=== PATIENT | male | born 1965 | race Caucasian/White ===

== ENCOUNTER 2016-07-09 11:03 | Emergency (ER) | payer OTHER ==
[~2016-07-09] VITALS: Ht 177.8 cm; Wt 70.0 kg
[2016-07-09 11:05] VITALS: BP 104/68; PULSE 89; RESP 16; TEMP 98.2; O2SAT 99
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
[2016-07-09] MEDS ORDERED: IBUP800T23 PO (12:47)
[2016-07-09] MEDS ORDERED: TETANUS/DIPHTHERIA TOXOID ADULT 0.5 ML VIAL IM ONE (13:00)
== END 2016-07-09 13:18 ==
LOC: NEPB 11:03
DX: S01.01XA Laceration without foreign body of scalp, initial encounter (principal); Z72.0 Tobacco use; F12.90 Cannabis use, unspecified, uncomplicated; Z21 Asymptomatic human immunodeficiency virus [HIV] infection status; X99.8XXA Assault by other sharp object, initial encounter; Z23 Encounter for immunization
CPT/HCPCS: 12001; 70450; 90471; 90714